=== PATIENT | female | born 1985 | race Two or more races ===

== ENCOUNTER → 2016-12-21 | Outpatient (CLI) | payer OTHER, SELFPAY ==
[~2016-12-21] MED LIST: APNO TOP; DERMOPLAST SPRA56 GM TOP; FEOSOL325 MG PO; LANSINOH7 GM TOP; MOTRIN800 MG PO; PERCOCET 5-3251 EACH PO; PRENATAL 1+1)(P1 TAB PO; TUCKS1 EACH TOP
== END | disposition disaster alternative care site (69) ==
LOC: GRAD 10:21
DX: R10.11 Right upper quadrant pain (principal)
CPT/HCPCS: A9537